=== PATIENT | female | born 2000 | race Caucasian/White ===

== ENCOUNTER 2023-10-03 09:54 | Outpatient (CLI) | payer OTHER ==
[2023-10-03 11:25] LABS: BHCG - Serum Negative (NEGATIVE); Pregs Control Background? CLEAR/WHITE (CLR/WHITE); Pregs Control Bar Appear? YES (CONTROL BAR)
[2023-10-03 11:36] LABS: #Eosinphils 0.3 10x3/uL (0.0-0.5); #Monocytes 0.3 10x3/uL (0.0-1.1); #Neutrophils 2.5 10x3/uL (1.5-8.4); %Basophils 0.4 % (0.0-2.0); %Eosinophils 5.9 % (0.0-6.0); %Lymphocytes 34.3 % (18.0-47.0); %Monocytes 5.4 % (0.0-10.0); %Neutrophils 53.8 % (40.0-75.0); Hematocrit 36.7 % (34.9-44.5); Hemoglobin 11.8 g/dL (12.0-15.5); Mean Corpuscular HGB CONC 32.2 g/dL (32.0-36.0); Mean Corpuscular Volume 74.6 fl (81.6-98.3); Mean Platelet Volume 10.8 fl (7.4-10.4); Platelet Count 145 10x3/uL (150-450); RBC Distribution Width 17.6 % (11.5-14.5); Red Blood Cell (RBC) Count 4.92 10x6/uL (3.90-5.03); White Blood Cell (WBC) Count 4.6 10x3/uL (3.5-10.5)
[2023-10-03 11:39] LABS: Anisocytosis SLIGHT = 6-15 cells (100X) (0-5/hpf); Microcytosis SLIGHT = 6-15 cells (100X) (0-5/hpf); Platelet Clumps MODERATE
[2023-10-03 11:48] LABS: ALT (SGPT) 29 U/L (8-55); AST (SGOT) 22 U/L (5-34); Albumin 4.7 g/dL (3.5-5.0); Alkaline Phosphatase 120 U/L (40-110); Anion Gap 16 mmol/L (10-20); BUN (Urea Nitrogen) 14 mg/dL (7.0-18.7); Bilirubin, Direct 0.1 mg/dL (0.1-0.3); Bilirubin, Total 0.4 mg/dL (0.2-1.2); Calc. Creatinine Clearance 0 mL/min (70-130); Calcium 9.5 mg/dL (7.8-10.44); Carbon Dioxide 22 mmol/L (22-29); Chloride 107 mmol/L (98-107); Estimated GFR 126; Globulin 3.3 g/dL (2.4-3.5); Glucose 95 mg/dL (70-105); Potassium 4.7 mmol/L (3.5-5.1); Sodium 140 mmol/L (136-145)
== END 2023-10-03 09:55 | disposition home or self-care (01) ==
LOC: EDSEX → LABBT 09:54
PROVIDERS: ATTEND Surgery
DX: Z01.812 Encounter for preprocedural laboratory examination (principal); K80.20 Calculus of gallbladder without cholecystitis without obstruction
CPT/HCPCS: 80053; 80076; 84703; 85025

== ENCOUNTER 2023-10-07 07:09 | Day surgery (SDC) | payer OTHER ==
[2023-10-03 10:30] VITALS: BMI 44.4
[2023-10-07] MEDS ORDERED: PROPOFOL 20 ML ONE (07:55)
[2023-10-07] MEDS ORDERED: Lidocaine 1% PF 5 ML VIAL ONE (07:56)
[2023-10-07] MEDS ORDERED: Acetaminophen 500 MG TAB ONE (07:57)
[2023-10-07] MEDS ORDERED: Midazolam HCl 2 mg/2 ml Vial ONE ×2 (08:26)
[2023-10-07] MEDS ORDERED: fentaNYL PF 100 MCG/2 ML SYRINGE ONE ×2 (08:26→10:10)
[2023-10-07] MEDS ORDERED: Bupivacaine 0.25% HCL 30 ML VIAL ONE (08:29)
[2023-10-07] MEDS ORDERED: Indocyanine Green 25 MG/10 ML VIAL ONE (08:29)
[2023-10-07] MEDS ORDERED: EPINEPHrine 1 MG/ML VIAL ONE (08:29)
[2023-10-07] MEDS ORDERED: HYDROmorphone 0.5 MG/0.5 ML SYRINGE ONE ×2 (08:32→10:29)
[2023-10-07] MEDS ORDERED: cefOXitin 2 GM VIAL ONE (08:37)
[2023-10-07] MEDS ORDERED: Sodium Chloride 0.9% 100 ML ONE (08:37)
[2023-10-07] MEDS ORDERED: Phenylephrine 10 MG/ML VIAL ONE (08:59)
[2023-10-07] MEDS ORDERED: SUGAMMADEX SODIUM 200 MG/2 ML VIAL ONE (09:21)
[2023-10-07] MEDS ORDERED: fentaNYL 50 mcg/mL 1 mL Vial ONE ×2 (09:23→10:49)
[2023-10-07] MEDS ORDERED: HYDROcodone/Acetaminophen 5/325 mg Tablet ONE (11:36)
== END 2023-10-07 12:15 | disposition home or self-care (01) ==
LOC: SDC 07:09 → EDSEX 12:00 → SDC 12:15
PROVIDERS: ATTEND Surgery
PROC: 0FT44ZZ Resection of Gallbladder, Percutaneous Endoscopic Approach (ICD-10-PCS; principal; 2023-10-07)
DX: K80.10 Calculus of gallbladder with chronic cholecystitis without obstruction (principal); Z90.89 Acquired absence of other organs; Z87.891 Personal history of nicotine dependence
CPT/HCPCS: 88304; C1889; J0171; J0665; J0694; J1170; J2250; J2371; J2704; J3010; J3490